=== PATIENT | male | born 1980 | race Caucasian/White ===

== ENCOUNTER → 2018-04-06 16:41 | Outpatient (CLI) | payer OTHER, SELFPAY ==
[2018-04-06 17:16] LABS: Bacteria Urine None Seen; RBC Urine None Seen (0-5/HPF)
[2018-04-06 17:46] LABS: Add Manual Diff / Slide Review NO; Basophils Absolute Auto 0 /uL (0-100); Basophils Percent Auto 0.7 % (0-2); Eosinophils Absolute Auto 0 /uL (0-450); Eosinophils Percent Auto 1.5 % (2-4); Hematocrit 47.6 % (41-53); Lymphocytes Absolute Auto 700 /uL (1100-4500); Lymphocytes Percent Auto 30.9 % (25-40); Mean Corpuscular HGB Conc 33.7 % (30-36); Mean Corpuscular Hemoglobin 30.1 PG (26-34); Mean Corpuscular Volume 89.3 fL (80-100); Monocytes Absolute Auto 400 /uL (0-900); Monocytes Percent Auto 18.2 % (3-14); Neutrophils Absolute Auto 1100 /uL (1500-7000); Neutrophils Percent Auto 48.7 % (50-75); Platelet Count 169 X10^3/uL (150-400); Red Blood Cell Count 5.33 X10^6/uL (4.5-5.9); Red Cell Distribution Width 12.8 % (11.6-14.8); White Blood Cell Count 2.3 X10^3/uL (4.5-11.0)
[2018-04-06 17:59] LABS: Erythrocyte Sedimentation Rate 2 MM/HR (0-15)
[2018-04-06 18:14] LABS: Appearance Urine UA CLEAR; Bilirubin Urine UA NEGATIVE (NEGATIVE); Color Urine UA YELLOW; Glucose Urine UA NEGATIVE (Negative); Ketones Urine UA NEGATIVE (NEGATIVE); Leukocyte Esterase Urine UA NEGATIVE (NEGATIVE); Nitrite Urine UA NEGATIVE (Negative); Occult Blood Urine UA NEGATIVE (Negative); Protein Urine UA NEGATIVE (Negative); Urobilinogen Urine UA 0.2 E.U./dL (0.2); pH Urine UA 5.5 (4.5-8.0)
[2018-04-06 18:34] LABS: Culture Indicated Urine Cult Not Indicated; Squamous Epithelial Cell Urine 0-1 /HPF; WBC Urine 0-1/HPF (0-5/HPF)
== END ==
PROVIDERS: PCP Family Medicine; Visit Provider Family Medicine
DX: M25.50 Pain in unspecified joint (principal)
CPT/HCPCS: 36415; 81001; 85025; 85651

== ENCOUNTER → 2018-04-07 09:36 | Outpatient (CLI) | payer OTHER, SELFPAY ==
--- NOTE | 2018-04-07 | DI.RAD.S_ITS ---
PROCEDURE: XR CHEST 2V INDICATIONS: COUGH TECHNIQUE: 2 views of the chest were acquired. COMPARISON: None. FINDINGS: Surgical changes and devices: None. Lungs and pleura: Lungs are clear. No pleural effusions or pneumothorax. Mediastinum: Mediastinal contours are normal. Heart size is normal. Bones and chest wall: No suspicious bony abnormalities. Soft tissues appear unremarkable. IMPRESSION: No acute pulmonary process. Dictated by: Carmelita Alexis M.D. on 04/07/2018 at 11:34 Approved by: Carmelita Alexis M.D. on 04/07/2018 at 11:34
== END ==
PROVIDERS: PCP Family Medicine; Visit Provider Family Medicine
DX: R05 Cough (principal); R51 Headache; M25.50 Pain in unspecified joint
CPT/HCPCS: 71046; 87400

== ENCOUNTER → 2020-04-18 14:46 | Outpatient (CLI) | payer OTHER, SELFPAY ==
[2020-04-18] MEDS: COVID-19 VACC, Ad26(JANSSEN)/PF 0.5 ML IM (14:58)
== END ==
PROVIDERS: PCP Family Medicine; Visit Provider Internal Medicine
DX: Z23 Encounter for immunization (principal)
CPT/HCPCS: 0031A; 91303

== ENCOUNTER 2020-09-19 22:02 | Emergency (ER) | payer OTHER, SELFPAY ==
--- NOTE | 2020-09-19 22:05 | ED.URI ---
HPI - URI/Sore Throat General Chief Complaint: Recheck/Abnormal Lab/Rx Stated Complaint: wants a covid test Time Seen by Provider: 09/19/20 22:03 History of Present Illness HPI Narrative: 39-year-old male nonsmoker with noncontributory medical history presents requesting a test for COVID after attending a baby shower over the weekend where there was someone who was later found to be COVID positive. Patient denies any symptoms whatsoever. Patient denies fever, headache, runny nose, nasal congestion, sore throat, cough or GI symptoms such as nausea, vomiting or diarrhea Related Data Home Medications Medication Instructions Recorded Confirmed [ANTIBIOTIC ] #0 09/29/06 Allergies Allergy/AdvReac Type Severity Reaction Status Date / Time No Known Drug Allergies Allergy Verified 09/19/20 22:17 Review of Systems Review of Systems Narrative: GENERAL: Denies chills, fatigue, malaise, fever, sweats. HEENT: Denies sinus pain, ear pain, sore throat, difficulty swallowing, dizziness. RESPIRATORY: Denies dyspnea, cough, wheezing, hemoptysis, sputum. CARDIOVASCULAR: Denies chest pain, palpitations, orthopnea, edema, GASTROINTESTINAL: Denies nausea, vomiting, abdominal pain, diarrhea, constipation, melena. : Denies dysuria, frequency, incontinence, hematuria, urinary retention. MUSCULOSKELETAL: denies weakness, joint pain, or bony pain SKIN: Denies rash, skin lesions, or other NEUROLOGIC: Denies weakness, headache, numbness, change in speech, confusion, seizures, incoordination. PSYCHIATRIC: No concerning psychosocial issues. 12 point review of systems is negative except for those stated above Patient History Social History Smoking Status: Never smoker Exam Narrative Exam Narrative: GEN: AOx3 and in mild distress EYES: Pupils are equal, round, and reactive to light and accommodation. Extraoccular muscles are intact bilaterally. There is no subconjunctival hemorrhage or exudate. CHEST: Lungs are clear to auscultation bilaterally and free of wheezes, rales, or rhonchi. Heart rate is regular rhythm, there are no murmurs, clicks, rubs, or gallops. There is no chest wall tenderness. ABD: Abdomen is soft and nontender. There is no guarding or rebound. Bowel sounds are normal in all 4 quadrants. There is no mass or organomegaly. EXT: Full painless ROM of all extremities with no loss of sensation or strength. SKIN: Warm, pink, and dry. No erythema or rash Initial Vital Signs Initial Vital Signs: Vital Signs Temperature 98.1 F 09/19/20 22:17 Pulse Rate 79 09/19/20 22:17 Respiratory Rate 18 09/19/20 22:17 Blood Pressure 137/85 09/19/20 22:17 Pulse Oximetry 98 09/19/20 22:17 Course Orders Ordered: ED Orders 09/19/20 22:10 COVID19 -Nasal swab/Pre-Proc Stat Vital Signs Vital signs: Vital Signs - 8 hr 09/19/20 22:17 Temperature 98.1 F Pulse Rate 79 Respiratory Rate 18 Blood Pressure 137/85 Pulse Oximetry 98 MDM - URI/Sore Throat Lab Data Labs: Lab Results 09/19/20 Range/Units 22:10 SARS-CoV-2 (PCR) Negative (Negative) Discharge Plan Departure Patient Disposition: Home Clinical Impression: Feared complaint without diagnosis Instructions: COVID-19 Viral Test Activity Restrictions/Additional Instructions: *You have been diagnosed with [exposure to COVID with negative test] *What to do: *Please continue to take your regular medications as directed. [ ] New medication prescriptions sent to your pharmacy: [ ] [ ] New medication written as a paper prescription [x ] No new medications given *Please follow up with your primary care provider in 2-3 days, call for an appointment. Let them know you were seen in the Emergency Department and that we ask that you be seen in follow up. We will electronically transmit a record of today's note if your PCP is in our system *If you do not have a primary care provider please contact the [facility] Resource line at [phone]. They will ask some questions about your medical history and help get you set up with a doctor in the community. *Return to Emergency Department if you should have any new, worsening or concerning symptoms, such as [fever greater than 101 F, shaking chills, worsening pain, persistent vomiting or other bothersome symptoms] Prescriptions: No Action [ANTIBIOTIC ] Qty: 0 RF: 0 Referrals: Albert Byers MD [Primary Care Provider] -
[2020-09-19 22:17] VITALS: BP 137/85; PULSE 79; RESP 18; TEMP 36.7; O2SAT 98
[2020-09-19 22:47] LABS: COVID19 -Nasal RAPID Negative (Negative)
== END 2020-09-19 23:12 | disposition home or self-care (01) ==
PROVIDERS: Emergency Provider Emergency Medicine; PCP Family Medicine
DX: Z20.822 Contact with and (suspected) exposure to COVID-19 (principal)
CPT/HCPCS: 87635; 99281; C9803

== ENCOUNTER → 2024-11-03 07:57 | Outpatient (CLI) | payer OTHER, SELFPAY ==
[2024-11-03 08:59] LABS: Hematocrit 43.2 % (41-53); Hemoglobin 14.9 g/dL (13.5-17.5); Mean Corpuscular HGB Conc 34.4 % (30-36); Mean Corpuscular Hemoglobin 30.3 PG (26-34); Mean Corpuscular Volume 88.1 fL (80-100); Platelet Count 276 X10^3/uL (150-400)
[2024-11-03 09:01] LABS: Add Manual Diff / Slide Review YES
[2024-11-03 09:13] LABS: Alanine Aminotransferase 31 IU/L (<50); Albumin 4.5 g/dL (3.5-5.0); Albumin Globulin Ratio 1.7 (1.0-2.8); Alkaline Phosphatase 55 U/L (38-126); Blood Urea Nitrogen 26 mg/dL (9-20); Calcium 9.3 mg/dL (8.4-10.2); Carbon Dioxide 28 mmol/L (22-32); Chloride 104 mmol/L (98-107); Cholesterol 230 mg/dL (140-199); Estimated Glomerular Filt Rate > 60 mL/min (>60); Globulin 2.7 g/dL (1.7-4.1); Glucose 95 mg/dL (70-99); HDL Cholesterol 45 mg/dL (40-60); HEMOLYSIS 34 (0-50); Potassium 5.0 mmol/L (3.4-5.1); Sodium 140 mmol/L (137-145); Total Protein 7.2 g/dL (6.3-8.2); Triglycerides 156 mg/dL (35-150)
[2024-11-03 09:17] LABS: Band Neutrophils Percent 1.0 % (3-7); Basophils Percent Manual 1.0 % (0-1); Eosinophils Percent Manual 7.0 % (2-4); Lymphocytes Percent Manual 29.0 % (25-45); Monocytes Percent Manual 15.0 % (2-11); Neutrophils Absolute Manual 2400 /uL (3000-5900); RBC Morphology Normal Morphology; Segmented Neutrophils Percent 47.0 % (38-70); Total Cells Counted 100
[2024-11-03 09:40] LABS: TSH w/ Reflex to FT4 2.33 uIU/mL (0.47-4.68)
[2024-11-03 09:42] LABS: Prostate Specific Antigen 0.749 ng/mL (0.10-4.00)
== END ==
PROVIDERS: PCP Family Medicine; Referring Provider Family Medicine; Visit Provider Family Medicine
DX: E78.5 Hyperlipidemia, unspecified (principal); R53.83 Other fatigue; R79.89 Other specified abnormal findings of blood chemistry; Z13.29 Encounter for screening for other suspected endocrine disorder; Z12.5 Encounter for screening for malignant neoplasm of prostate; Z80.42 Family history of malignant neoplasm of prostate; Z83.3 Family history of diabetes mellitus
CPT/HCPCS: 36415; 80053; 80061; 84153; 84443; 85007; 85025